=== PATIENT | female | born 1945 | race Two or more races ===

== ENCOUNTER 2022-11-11 18:10 | Emergency (ER) | payer MEDICARE, BC ==
[~2022-11-11] VITALS: Ht 162.6 cm; Wt 61.2 kg
--- NOTE | 2022-11-11 18:15 | NUR ---
RECEIVED PT 77 YRS FEMALE FROM HOME c/o palpitation since 5 pm today accompany by PT RAEGAN MYERS HR ON 09/2018
--- NOTE | 2022-11-11 18:20 | NUR ---
Kaila lamas in [facility] - 11/11/22 at 1936 by SARIAH JESSICAG DONE AT [facility]
--- NOTE | 2022-11-11 18:20 | NUR ---
INSERTED ANGO CATHER G 20 ONRT AC BLOOD DROW AND SENT TO LAB
--- NOTE | 2022-11-11 18:22 | NUR ---
SEEN BY DR. GREENBERG AT BED SIDE
--- NOTE | 2022-11-11 18:45 | NUR ---
CARDIZEM 20 MG SLOW IVP OVER 2 MIN PT TOLORATED PROCEDURE IVF NS 1 LITER IFUSED AND PATENT
[2022-11-11] MEDS ORDERED: DILTIAZEM HCL 25 MG IV ONE (18:46)
[2022-11-11] MEDS ORDERED: DILTIAZEM HCL 50 MG IV IV ONE (19:00)
[2022-11-11] MEDS ORDERED: IV NS 0.9% 1,000 ML IV ONE (19:00)
--- NOTE | 2022-11-11 19:00 | NUR ---
PT CONVERTED TO NSR WITH HR 88B/MIN BP 142/71 O2 SAT 100%
--- NOTE | 2022-11-11 19:10 | NUR ---
CONTENUE AND CLOSLY MONITER PT AND BP Q 10 MIN
[2022-11-11 19:17] LABS: BASOPHILS % (AUTO) 0.6 % (0.0-2.0); EOSINOPHILS % (AUTO) 1.3 % (0.0-6.0); HEMATOCRIT 41 % (33-45); HEMOGLOBIN 13.9 g/dL (11.5-14.8); LYMPHOCYTES % (AUTO) 36.5 % (20.0-44.0); MEAN CORPUSCULAR HGB CONC 34 g/dl (31.0-36.0); MEAN CORPUSCULAR VOLUME 93 fL (82-100); MONOCYTES # (AUTO) 0.4 K/uL (0.1-1.30); MONOCYTES % (AUTO) 6.7 % (2.0-12.0); NEUTROPHILS # (AUTO) 3.1 K/uL (1.8-8.9); NEUTROPHILS % (AUTO) 54.9 % (43.0-81.0); PLATELET COUNT (AUTO) 222 K/uL (150-450); WHITE BLOOD COUNT (AUTO) 5.6 K/uL (4.3-11.0)
[2022-11-11] MEDS ORDERED: DILTIAZEM HCL 30 MG TABLET PO ONE (19:30)
--- NOTE | 2022-11-11 19:30 | NUR ---
HAND OFF JUAN CARLOS RN
--- NOTE | 2022-11-11 19:31 | NUR ---
COVID SWAB DONE AND SENT TO LAB
[2022-11-11] MEDS ORDERED: DILTIAZEM HCL 30 MG TABLET ONE (19:38)
--- NOTE | 2022-11-11 19:40 | NUR ---
NOTED HR AT LOW 60'S, SR ON THE MONITOR. VERIFIED WITH DR GREENBERG RE: CARDIZEM 60 MG PO, ORDER RECEIVED TO HOLD FOR NOW. AWAITING FURTHER ORDERS.
[2022-11-11 19:49] LABS: CALCIUM, SERUM 9.9 mg/dL (8.5-10.1); CARBON DIOXIDE 24 mmol/L (21-32); CHLORIDE 98 mmol/L (98-107); CREATININE 0.8 mg/dL (0.6-1.3); GLUCOSE 123 mg/dL (74-106); POTASSIUM 3.4 mmol/L (3.5-5.1); SODIUM SERUM 134 mmol/L (136-145); UREA NITROGEN, BLOOD 17 mg/dL (7-18)
[2022-11-11 19:58] LABS: ALANINE AMINOTRANSFERASE 27 U/L (12-78); ALBUMIN 4.3 g/dL (3.4-5.0); ALKALINE PHOSPHATASE 73 U/L (46-116); ASPARTATE AMINOTRANSFERASE 15 U/L (15-37); BILIRUBIN,DIRECT 0.1 mg/dL (0.0-0.2); BILIRUBIN,TOTAL 0.7 mg/dL (0.2-1.0); TOTAL PROTEIN, SERUM 7.5 g/dL (6.4-8.2)
--- NOTE | 2022-11-11 21:45 | NUR ---
DR GREENBERG AT BEDSIDE
[2022-11-11 22:12] VITALS: BP 149/67
--- NOTE | 2022-11-11 22:12 | NUR ---
Patient discharged to home in stable condition. Written and verbal after care instructions given. Patient verbalizes understanding of instruction. Pt ambulatory with a steady gait
== END 2022-11-11 22:13 | disposition home or self-care (01) ==
LOC: ER 18:28
DX: I48.20 Chronic atrial fibrillation, unspecified (principal); I10 Essential (primary) hypertension; E78.00 Pure hypercholesterolemia, unspecified; Z88.8 Allergy status to other drugs, medicaments and biological substances; Z20.822 Contact with and (suspected) exposure to COVID-19
CPT/HCPCS: 99291; 96374; 96361; 87426; 93005 ×3; 71045; 85025; 80048; 80076; 83735; 36415; 84484 ×2; J3490; J7030; A4223; C9803

== ENCOUNTER 2022-11-14 23:02 | Emergency (ER) | payer MEDICARE, BC ==
[~2022-11-14] VITALS: Ht 162.6 cm; Wt 61.7 kg
[2022-11-14 23:19] VITALS: BP 160/74
--- NOTE | 2022-11-14 23:39 | NUR ---
BLOOD COLLECTED AND SENT TO LAB
[2022-11-14 23:50] LABS: BASOPHILS # (AUTO) 0.1 K/uL (0.0-0.2); EOSINOPHILS % (AUTO) 1.4 % (0.0-6.0); HEMATOCRIT 37 % (33-45); HEMOGLOBIN 12.7 g/dL (11.5-14.8); LYMPHOCYTES # (AUTO) 1.9 K/uL (0.8-4.8); LYMPHOCYTES % (AUTO) 35.8 % (20.0-44.0); MEAN CORPUSCULAR HGB CONC 34 g/dl (31.0-36.0); MEAN CORPUSCULAR VOLUME 94 fL (82-100); MONOCYTES # (AUTO) 0.4 K/uL (0.1-1.30); MONOCYTES % (AUTO) 7.9 % (2.0-12.0); NEUTROPHILS # (AUTO) 2.9 K/uL (1.8-8.9); NEUTROPHILS % (AUTO) 53.9 % (43.0-81.0); PLATELET COUNT (AUTO) 217 K/uL (150-450); RED BLOOD CELL COUNT(AUTO) 3.96 MIL/uL (4.0-5.2); WHITE BLOOD COUNT (AUTO) 5.4 K/uL (4.3-11.0)
[2022-11-15 00:03] LABS: CALCIUM, SERUM 9.4 mg/dL (8.5-10.1); CARBON DIOXIDE 26 mmol/L (21-32); CHLORIDE 97 mmol/L (98-107); CREATININE 0.9 mg/dL (0.6-1.3); GLUCOSE 133 mg/dL (74-106); POTASSIUM 3.8 mmol/L (3.5-5.1); SODIUM SERUM 133 mmol/L (136-145); UREA NITROGEN, BLOOD 17 mg/dL (7-18)
--- NOTE | 2022-11-15 01:07 | NUR ---
Patient does not wish to proceed with medical care recommended by Dr. Omalley. Patient given information related to possible complications, up to and including , which could occur as a result of leaving the hospital at this time. Patient verbalizes understanding of risks involved due to leaving against medical advice. Patient has signed AMA form. IV removed. Catheter intact and site benign. Pressure and 4x4 applied to site. No bleeding noted.
== END 2022-11-15 01:14 | disposition left against medical advice (07) ==
LOC: ER 23:04
DX: R00.2 Palpitations (principal); R06.02 Shortness of breath; R06.00 Dyspnea, unspecified; I10 Essential (primary) hypertension; R42 Dizziness and giddiness; Z88.8 Allergy status to other drugs, medicaments and biological substances
CPT/HCPCS: 36415; 80048-TC; 84484-TC; 85025-TC